=== PATIENT | female | born 1975 | race Caucasian/White ===

== ENCOUNTER 2020-01-19 00:34 | Emergency (ER) | payer BC ==
[~2020-01-19] VITALS: Ht 167.6 cm; Wt 80.9 kg
[2020-01-19 01:46] LABS: BASOPHIL % 0.5 % (0-2); RED CELL DISTRIBUTION WIDTH 12.8 % (11.5-14.5)
[2020-01-19 01:53] LABS: PLATELET COUNT 456 x10^3mcL (130-400)
[2020-01-19 01:59] LABS: CALCIUM 9.2 mg/dL (8.5-10.1); CARBON DIOXIDE 32.7 mmol/L (21-32); CHLORIDE SERUM 103 mmol/L (98-107); CREATININE SERUM 0.8 mg/dL (0.6-1.0); GFR1 > 60 mL/min; GLUCOSE SERUM 109 mg/dL (74-106); POTASSIUM SERUM 4.3 mmol/L (3.5-5.1); SODIUM SERUM 140 mmol/L (136-145)
[2020-01-19 02:04] LABS: ALBUMIN 3.7 g/dL (3.4-5.0); ALKALINE PHOSPHATASE 55 U/L (46-116); ALT/SGPT 38 U/L (14-59); AMYLASE 51 U/L (25-115); AST/SGOT 19 U/L (15-37); BILIRUBIN TOTAL 0.3 mg/dL (0.20-1.00); LIPASE 129 IU/L (73-393); TOTAL PROTEIN, SERUM 7.7 g/dL (6.4-8.2)
[2020-01-19 05:34] VITALS: BP 115/65
== END 2020-01-19 05:34 | disposition home or self-care (01) ==
LOC: ED 00:34
PROVIDERS: Emergency Medicine
DX: K80.20 Calculus of gallbladder without cholecystitis without obstruction (principal); I10 Essential (primary) hypertension
CPT/HCPCS: J1885; J2270; J7030; Q0092

== ENCOUNTER 2020-04-29 07:52 | Emergency (ER) | payer BC ==
[~2020-04-29] VITALS: Ht 167.6 cm; Wt 79.4 kg
[2020-04-29 08:02] VITALS: Ht 167.6 cm; Wt 79.4 kg
[2020-04-29 08:16] LABS: BASOPHIL % 0.3 % (0-2); RED CELL DISTRIBUTION WIDTH 13.1 % (11.5-14.5)
[2020-04-29 08:20] LABS: CARBON DIOXIDE 28.5 mmol/L (21-32); CHLORIDE SERUM 100 mmol/L (98-107); POTASSIUM SERUM 4.4 mmol/L (3.5-5.1); SODIUM SERUM 137 mmol/L (136-145)
[2020-04-29 08:29] LABS: PLATELET COUNT 408 x10^3mcL (130-400)
[2020-04-29 08:42] LABS: CK-MB < 0.5 ng/mL (0-3.6); CREATINE KINASE 37 U/L (26-192)
[2020-04-29 09:27] LABS: ALBUMIN 4.2 g/dL (3.4-5.0); ALT/SGPT 301 U/L (14-59); AST/SGOT 88 U/L (15-37); BILIRUBIN TOTAL 0.9 mg/dL (0.20-1.00); CALCIUM 10.1 mg/dL (8.5-10.1); CREATININE SERUM 0.8 mg/dL (0.6-1.0); GFR1 > 60 mL/min; GLUCOSE SERUM 121 mg/dL (74-106); TOTAL PROTEIN, SERUM 9.1 g/dL (6.4-8.2)
[2020-04-29 09:28] LABS: ALKALINE PHOSPHATASE 96 U/L (46-116); C REACTIVE PROTEIN 3.5 mg/dL (<=0.9)
[2020-04-29 09:48] LABS: ERYTHROCYTE SED RATE 50 mm/hr (0-20)
[2020-04-29 10:19] LABS: microscopic required? YES; urine erythrocyte 2+ (NEGATIVE)
[2020-04-29 13:07] VITALS: BP 123/79
== END 2020-04-29 13:07 | disposition home or self-care (01) ==
LOC: ED 07:52
PROVIDERS: Specialist
DX: D72.829 Elevated white blood cell count, unspecified (principal); I10 Essential (primary) hypertension; Z90.49 Acquired absence of other specified parts of digestive tract; Z87.442 Personal history of urinary calculi
CPT/HCPCS: J0696; J1885; J2270; J2405; J3010; J3490; J7030; J7060; Q0092; Q9967